=== PATIENT | male | born 1965 | race Caucasian/White ===

== ENCOUNTER 2017-02-16 21:55 | Emergency (ER) | payer MEDICAID ==
--- NOTE | 2017-02-16 22:37 | CPEKG ---
Heart Rate: 78 RR Interval: 769 P-R Interval: 180 QRSD Interval: 100 QT Interval: 412 QTC Interval: 470 P Redbird: 70 QRS Redbird: 23 T Wave Redbird: 50 EKG Severity - BORDERLINE ECG - EKG Impression: SINUS RHYTHM Electronically Signed By: Stephanie Iglesias 17-Feb-2017 05:57:56
[2017-02-16 22:50] LABS: % IMMATURE GRANULYOCYTES 0.3 % (0.0-1.1); ABSOLUTE IMMATURE GRANULOCYTES 0.01 10^3/uL (0.00-0.10); ADD DIFF? NO; ADD MORPH? NO; ADD SCAN? NO; ATYPICAL LYMPHOCYTE FLAG 40 (0-99); FRAGMENT RBC FLAG 0 (0-99); HEMATOCRIT 41.2 % (40.0-51.0); HEMOGLOBIN 14.2 g/dL (13.7-17.5); LEFT SHIFT FLG 0 (0-99); LIPEMIA HEMOLYSIS FLAG 90 (0-99); MEAN CELL HEMOGLOBIN 33.9 pg (27.9-34.1); MEAN CELL HEMOGLOBIN CONCENTR. 34.5 g/dL (32.4-36.7); MEAN CELL VOLUME 98.3 fL (81.5-99.8); MEAN PLATELET VOLUME 10.7 fL (8.7-11.7); PLATELET CLUMPS FLAG 0 (0-99); PLATELET COUNT 109 10^3/uL (150-400); RED BLOOD CELL COUNT 4.19 10^6/uL (4.40-6.38); RED CELL DISTRIBUTION WIDTH 14.9 % (11.5-15.2)
[2017-02-16 22:59] LABS: APTT 34.1 SEC (23.0-38.0); INR 1.44 (0.83-1.16); PROTIME(PATIENT) 17.7 SEC (12.0-15.0)
[2017-02-16 23:00] LABS: ALANINE AMINOTRANSFERASE 69 IU/L (21-72); ALBUMIN 3.6 g/dL (3.5-5.0); ALKALINE PHOSPHATASE 74 IU/L (38-126); ANION GAP 13 mEq/L (8-16); ASPARTATE AMINOTRANSFERASE 60 IU/L (17-59); BILIRUBIN,TOTAL 0.7 mg/dL (0.1-1.4); BILIRUBIN-CONJUGATED 0.2 mg/dL (0.0-0.5); BILIRUBIN-UNCONJUGATED 0.5 mg/dL (0.0-1.1); CALCIUM 9.1 mg/dL (8.5-10.4); CARBON DIOXIDE 26 mEq/l (22-31); CHLORIDE 108 mEq/L (97-110); CREATININE 0.7 mg/dL (0.7-1.3); GLOMERULAR FILTRATION RATE > 60; GLUCOSE 108 mg/dL (70-100); POTASSIUM 4.3 mEq/L (3.5-5.2); SODIUM 147 mEq/L (134-144); TOTAL PROTEIN 7.2 g/dL (6.3-8.2)
[2017-02-16 23:12] LABS: TROPONIN I < 0.012 ng/mL (0.000-0.034)
--- NOTE | 2017-02-16 23:12 | EDPHY ---
H & P Stated Complaint: bilat le swelling for 4 days - Personal History Current Tetanus/Diphtheria Vaccine: No Current Tetanus Diphtheria and Acellular Pertussis (TDAP): No - Medical/Surgical History Hx Asthma: No Hx Chronic Respiratory Disease: Yes Hx Diabetes: No Hx Cardiac Disease: No Hx Renal Disease: No Hx Cirrhosis: Yes Hx Alcoholism: No Hx HIV/AIDS: No Hx Splenectomy or Spleen Trauma: No Other PMH: espophogeal varicies with banding. hep c. cirrohsis - Social History Smoking Status: Current some day smoker HPI/ROS: Chief complaint: Bilateral leg swelling History of present illness: This is a 51-year-old male with history of hepatitis C, cirrhosis, esophageal varices have been banded who presents to the emergency department for evaluation of bilateral leg swelling. He reports the onset of symptoms over the last 3-4 days. Symptoms have been worsening. Symptoms involve the feet, ankles and lower aspect of the lower legs. Symptoms are symmetrical. He is currently on Lasix and spironolactone which he has been taking as prescribed. He denies precipitating factors. He denies alleviating factors. He denies other associated signs or symptoms including no fevers, no chest pain, no cough, no trouble breathing, no swelling of the abdomen, no history of trauma. Review of systems: A 10 point review of systems was obtained and other than described above was negative (Ko Maurer) - Physical Exam Exam: General Appearance: Alert, nontoxic. Eyes: Pupils equal and round no pallor or injection. ENT, Mouth: Mucous membranes moist. Respiratory: There are no retractions, lungs are clear to auscultation. Cardiovascular: Regular rate and rhythm. DP and PT pulses 2+. Gastrointestinal: Bowel sounds are normal. Abdomen is soft, nondistended, nontender. Neurological: Alert and oriented x4. Strength and sensation intact and symmetrical. Skin: Warm and dry, no rashes. Musculoskeletal: Moderate edema to the feet, ankles and lower aspect of the lower extremities bilaterally. This is symmetrical. Psychiatric: Patient is oriented X 3, there is no agitation. (Ko Maurer) Constitutional: Initial Vital Signs Temperature (C) 36.6 C 02/16/17 22:00 Heart Rate 79 02/16/17 22:00 Respiratory Rate 18 02/16/17 22:00 Blood Pressure 119/87 H 02/16/17 22:00 O2 Sat (%) 98 02/16/17 22:00 O2 Delivery Mode Room Air Allergies/Adverse Reactions: aspirin Allergy (Verified 11/24/12 17:50) codeine Allergy (Verified 11/24/12 17:50) ibuprofen Allergy (Verified 11/24/12 17:50) Home Medications: Medication Instructions Recorded Flovent Diskus 02/16/17 Lasix 02/16/17 Prilosec 02/16/17 Medical Decision Making ED Course/Re-evaluation: Patient is discussed with my secondary supervising physician Dr. Stephanie Iglesias. Patient presents to the emergency department for symmetrical lower extremity edema. He is nontoxic. He is afebrile and vital signs are stable. Lab studies are largely unremarkable. Likely secondary to his underlying medical conditions. I have recommended he double the dose of his Lasix for the next 5 days. Home care is discussed including elevation of the legs. He is to follow up with a primary care doctor for recheck. Return precautions are given. (Ko Maurer) PHYSICIAN DOCUMENTATION: The patient was evaluated and managed by the [employer]. My co- signature indicates that I have reviewed this chart and I agree with the findings and plan of care as documented. I am the secondary supervising physician. (Stephanie Iglesias) Differential Diagnosis: Included but not limited to liver failure, renal failure, congestive heart failure, but edema, infections such as cellulitis, unlikely thromboembolic disease (Ko Maurer) - Data Points Laboratory Results: Laboratory Results 02/16/17 22:47 02/16/17 22:47 02/16/17 02/16/17 02/16/17 22:47 22:47 22:47 WBC 3.41 10^3/uL L 10^3/uL (3.80-9.50) RBC 4.19 10^6/uL L 10^6/uL (4.40-6.38) Hgb 14.2 g/dL g/dL (13.7-17.5) Hct 41.2 % % (40.0-51.0) MCV 98.3 fL fL (81.5-99.8) MCH 33.9 pg pg (27.9-34.1) MCHC 34.5 g/dL g/dL (32.4-36.7) RDW 14.9 % % (11.5-15.2) Plt Count 109 10^3/uL L 10^3/uL (150-400) MPV 10.7 fL fL (8.7-11.7) Neut % (Auto) 65.7 % % (39.3-74.2) Lymph % (Auto) 20.8 % % (15.0-45.0) [place] % (Auto) 11.1 % % (4.5-13.0) Eos % (Auto) 1.5 % % (0.6-7.6) Baso % (Auto) 0.6 % % (0.3-1.7) Nucleat RBC Rel Count 0.0 % % (0.0-0.2) Absolute Neuts (auto) 2.24 10^3/uL 10^3/uL (1.70-6.50) Absolute Lymphs (auto) 0.71 10^3/uL L 10^3/uL (1.00-3.00) Absolute Monos (auto) 0.38 10^3/uL 10^3/uL (0.30-0.80) Absolute Eos (auto) 0.05 10^3/uL 10^3/uL (0.03-0.40) Absolute Basos (auto) 0.02 10^3/uL 10^3/uL (0.02-0.10) Absolute Nucleated RBC 0.00 10^3/uL 10^3/uL (0-0.01) Immature Gran % 0.3 % % (0.0-1.1) Immature Gran # 0.01 10^3/uL 10^3/uL (0.00-0.10) PT 17.7 SEC H SEC (12.0-15.0) INR 1.44 H (0.83-1.16) APTT 34.1 SEC SEC (23.0-38.0) Sodium 147 mEq/L H mEq/L (134-144) Potassium 4.3 mEq/L mEq/L (3.5-5.2) Chloride 108 mEq/L mEq/L (97-110) Carbon Dioxide 26 mEq/l mEq/l (22-31) Anion Gap 13 mEq/L mEq/L (8-16) BUN 7 mg/dL mg/dL (7-23) Creatinine 0.7 mg/dL mg/dL (0.7-1.3) Estimated GFR > 60 Glucose 108 mg/dL H mg/dL (70-100) Calcium 9.1 mg/dL mg/dL (8.5-10.4) Total Bilirubin 0.7 mg/dL mg/dL (0.1-1.4) Conjugated Bilirubin 0.2 mg/dL mg/dL (0.0-0.5) Unconjugated Bilirubin 0.5 mg/dL mg/dL (0.0-1.1) AST 60 IU/L H IU/L (17-59) ALT 69 IU/L IU/L (21-72) Alkaline Phosphatase 74 IU/L IU/L (38-126) Troponin I < 0.012 ng/mL ng/mL (0.000-0.034) NT-Pro-B Natriuret Pep 44 pg/mL pg/mL (0-125) Total Protein 7.2 g/dL g/dL (6.3-8.2) Albumin 3.6 g/dL g/dL (3.5-5.0) Departure - Departure Disposition: Home, Routine, Self-Care Clinical Impression: Leg swelling Condition: Good Instructions: Leg Edema (ED) Additional Instructions: Follow-up with your primary care doctor on Saturday or Saturday for recheck Please take double the dose of your Lasix for the next 5 days If symptoms worsen or new symptoms develop return to the emergency room for recheck Referrals: NONE *PRIMARY CARE P,. [Primary Care Provider] - As per Instructions [facility],. [Clinic] - As per Instructions
[2017-02-16 23:57] VITALS: BP 101/70; PULSE 76; RESP 16; TEMP 97.7; O2SAT 95
== END 2017-02-16 23:56 | disposition home or self-care (01) ==
DX: M79.89 Other specified soft tissue disorders (principal); F17.200 Nicotine dependence, unspecified, uncomplicated